=== PATIENT | female | born 2000 | race Caucasian/White ===

== ENCOUNTER 2021-09-01 09:07 | Emergency (ER) | payer BC, OTHER ==
[~2021-09-01] VITALS: Ht 162.6 cm; Wt 64.5 kg
[2021-09-01] MEDS ORDERED: bcp (09:13)
[2021-09-01 12:33] VITALS: BP 129/79
== END 2021-09-01 12:45 | disposition home or self-care (01) ==
LOC: M ED 09:07
DX: S06.0X0A Concussion without loss of consciousness, initial encounter (principal); S50.01XA Contusion of right elbow, initial encounter; S50.311A Abrasion of right elbow, initial encounter; S16.1XXA Strain of muscle, fascia and tendon at neck level, initial encounter; W00.9XXA Unspecified fall due to ice and snow, initial encounter; W22.8XXA Striking against or struck by other objects, initial encounter; Y92.009 Unspecified place in unspecified non-institutional (private) residence as the place of occurrence of the external cause; Y93.9 Activity, unspecified; Y99.9 Unspecified external cause status